=== PATIENT | female | born 1950 | race Caucasian/White ===

== ENCOUNTER 2020-01-25 17:30 | Emergency (ER) | payer MEDICARE ==
--- NOTE | 2020-01-25 22:59 | ER Document Report ---
ED General - General Mode of Arrival: Ambulatory Information source: Patient - HPI Onset: Other Onset/Duration: Gradual - Weeks Quality of pain: Other - Tight short of breath backache cough and Severity: Moderate Pain Level: 3 Associated symptoms: Body/muscle aches, Productive cough, Leg swelling, Shortness of breath Exacerbated by: Supine, Movement, Walking Relieved by: Denies Similar symptoms previously: Yes Recently seen / treated by doctor: No <SISI BOYCE - Last Filed: 01/25/20 22:54> <MARKUS ARRINGTON - Last Filed: 01/26/20 10:54> - General Chief Complaint: Shortness Of Breath Stated Complaint: LEG SWELLING/PAIN Time Seen by Provider: 01/25/20 22:27 Notes: 69-year-old female presented to ED for very large swollen bilateral lower extremities. She states she does have a history of high blood pressure high cholesterol but has been taken off of both of those medications while still in [place]. She states she has had very swollen painful legs for at least 2 weeks and is just moved up here from [place] with these painful swollen legs. She does have a cough that sometimes is dry and sometimes is very moist. She is alert oriented lungs are moist at this time. She is short of breath unable to lay flat. (SISI BOYCE) - Related Data Allergies/Adverse Reactions: No Known Allergies Allergy (Unverified 01/26/20 01:47) Past Medical History - General Information source: Patient - Social History Smoking Status: Never Smoker Frequency of alcohol use: None Drug Abuse: None Lives with: Family Family History: Reviewed & Not Pertinent Patient has suicidal ideation: No Patient has homicidal ideation: No - Past Medical History Cardiac Medical History: Reports: Hx Hypercholesterolemia, Hx Hypertension Pulmonary Medical History: Reports: None EENT Medical History: Reports: None Neurological Medical History: Reports: None Endocrine Medical History: Reports: None Renal/ Medical History: Reports: None Malignancy Medical History: Reports: None GI Medical History: Reports: None Musculoskeletal Medical History: Reports None Skin Medical History: Reports None Psychiatric Medical History: Reports: None Traumatic Medical History: Reports: None Infectious Medical History: Reports: None Surgical Hx: Negative Past Surgical History: Reports: None <SISI BOYCE - Last Filed: 01/25/20 22:54> Review of Systems - Review of Systems Cardiovascular: Orthopnea Respiratory: Cough, Short of breath Gastrointestinal: No symptoms reported Genitourinary: No symptoms reported Female Genitourinary: No symptoms reported Musculoskeletal: Back pain, Muscle pain, Muscle stiffness, Leg swelling, Ankle swelling Skin: No symptoms reported Hematologic/Lymphatic: No symptoms reported Neurological/Psychological: Weakness -: Yes All other systems reviewed and negative <SISI BOYCE - Last Filed: 01/25/20 22:54> Physical Exam - Vital signs Interpretation: Normal - General General appearance: Appears well, Alert - HEENT Head: Normocephalic, Atraumatic Eyes: Normal Pupils: PERRL Ears: Normal External canal: Normal, Swollen Sinus: Normal Nasal: Purulent discharge Mouth/Lips: Normal Mucous membranes: Normal Pharynx: Post nasal drainage Neck: Normal - Respiratory Respiratory status: No respiratory distress Chest status: Nontender Breath sounds: Nonproductive cough, Productive cough, Rales Chest palpation: Normal - Cardiovascular Rhythm: Regular Heart sounds: Normal auscultation Murmur: No - Abdominal Inspection: Normal Distension: No distension Bowel sounds: Normal Tenderness: Nontender Organomegaly: No organomegaly - Back Back: Normal, Nontender - Extremities General upper extremity: Normal inspection, Nontender, Normal color, Normal ROM, Normal temperature General lower extremity: No: Arthur's sign Calf: Unable to bear weight, Other - edema Ankle: Tender, Edema, Limited ROM, Unable to bear weight - Neurological Neuro grossly intact: Yes Cognition: Normal Orientation: AAOx4 [place] Coma Scale Eye Opening: Spontaneous Brett Coma Scale Verbal: Oriented [place] Coma Scale Motor: Obeys Commands [place] Coma Scale Total: 15 Speech: Normal Motor strength normal: LUE, RUE, LLE, RLE Sensory: Normal - Psychological Associated symptoms: Normal affect, Normal mood - Skin Skin Temperature: Warm Skin Moisture: Dry Skin Color: Normal <SISI BOYCE - Last Filed: 01/25/20 22:54> - Vital signs Vitals: Temp Pulse Resp BP Pulse Ox 98.2 F 65 18 164/81 H 98 01/25/20 19:33 01/25/20 19:33 01/25/20 19:33 01/25/20 19:33 01/25/20 19:33 Course - Laboratory Result Diagrams: 01/26/20 00:05 01/25/20 23:19 <MARKUS ARRINGTON - Last Filed: 01/26/20 10:54> - Re-evaluation Re-evalutation: 01/26/20 08:00 report received on patient 01/26/20 09:00 I evaluated the patient. She has bilateral lower extremity edema. She recently traveled from [place] 3 weeks ago to live with family here but after 1 week she and her daughter were kicked out. They have been living in her car. I placed a consult for social work for the patient. 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 Does not on a diuretic. Doppler has been paged and are coming in to evaluate the patient although I suspect she likely has dependent edema and will need a course of diuretics. She has no complaints of chest pain shortness of breath 01/26/20 10:54 doppler study negative. patient has spoken to social work prior to discharge (MARKUS ARRINGTON) - Vital Signs Vital signs: Temp Pulse Resp BP Pulse Ox 97.5 F 72 16 141/72 H 97 01/26/20 02:04 01/26/20 02:04 01/26/20 02:04 01/26/20 02:04 01/26/20 02:04 - Laboratory Laboratory results interpreted by me: 01/25/20 01/25/20 01/25/20 23:19 23:19 23:51 RDW Sodium 135.9 L NT-Pro-B Natriuret Pep 143 H Urine Nitrite POSITIVE H Ur Leukocyte Esterase LARGE H Urine Ascorbic Acid 40 H 01/26/20 00:05 RDW 14.3 H Sodium NT-Pro-B Natriuret Pep Urine Nitrite Ur Leukocyte Esterase Urine Ascorbic Acid Discharge <SISI BOYCE - Last Filed: 01/25/20 22:54> <MARKUS ARRINGTON - Last Filed: 01/26/20 10:54> - Discharge Clinical Impression: Dependent edema UTI (urinary tract infection) Qualifiers: Urinary tract infection type: acute cystitis Hematuria presence: without hematuria Qualified Code(s): N30.00 - Acute cystitis without hematuria Condition: Stable Disposition: HOME, SELF-CARE Additional Instructions: Your Doppler studies were negative for blood clots, you likely have dependent edema try and keep the legs elevated above the heart level when sleeping. Use compression hose which you may brass pickler at the pharmacy to help compress the legs and remove some of the fluid. Take the diuretic as prescribed to help with the fluid on the legs. Follow-up with a primary care provider for reevaluation Prescriptions: Sulfamethoxazole/Trimethoprim [Bactrim Ds Tablet] 1 each PO BID #14 tablet Hydrochlorothiazide [Hydrodiuril 25 mg Tablet] 25 mg PO QAM #30 tablet Referrals: SUSAN PARKER MD [ACTIVE STAFF] - Follow up as needed
[2020-01-25 23:39] LABS: INTERNATIONAL RATION (INR) 1.07; PROTHROMBIN TIME 13.9 SEC (11.4-15.4)
[2020-01-25 23:40] LABS: PARTIAL THROMBOPLASTIN TIME 30.1 SEC (23.5-35.8)
--- NOTE | 2020-01-25 23:47 | RADIOLOGY REPORT (SQ) ---
XR CHEST 2 VIEWS CLINICAL STATEMENT: Short of breath pedal edema COMPARISON: None FINDINGS: Heart is moderately enlarged. There is no focal lung consolidation or pleural effusion. No evidence of pulmonary edema or pneumothorax. IMPRESSION: No acute cardiopulmonary disease.
[2020-01-25 23:53] LABS: A TYPE INFLUENZA AG NEGATIVE (NEGATIVE); B INFLUENZA AG NEGATIVE (NEGATIVE)
[2020-01-25 23:54] LABS: ALBUMIN 3.9 g/dL (3.5-5.0); ALKALINE PHOSPHATASE 77 U/L (38-126); ANION GAP 6 (5-19); ASPARTATE AMINO TRANSFERASE 22 U/L (14-36); BILIRUBIN,TOTAL 0.6 mg/dL (0.2-1.3); BLOOD UREA NITROGEN 14 mg/dL (7-20); CALCIUM 9.3 mg/dL (8.4-10.2); CARBON DIOXIDE 27 mmol/L (22-30); CHLORIDE 103 mmol/L (98-107); GLUCOSE 99 mg/dL (75-110); POTASSIUM 4.1 mmol/L (3.6-5.0); TOTAL PROTEIN 7.3 g/dL (6.3-8.2)
[2020-01-26 00:06] LABS: NT PRO BNP 143 pg/mL (<125)
[2020-01-26 00:08] LABS: TROPONIN I < 0.012 ng/mL
[2020-01-26 00:11] LABS: APPEARANCE,URINE SLIGHTLY-CLOUDY; BILIRUBIN,URINE NEGATIVE (NEGATIVE); COLOR,URINE YELLOW; GLUCOSE, URINE NEGATIVE (NEGATIVE); KETONES,URINE NEGATIVE (NEGATIVE); LEUKOCYTE ESTERASE,URINE LARGE (NEGATIVE); NITRITE,URINE POSITIVE (NEGATIVE); PROTEIN,URINE NEGATIVE (NEGATIVE); URINE SPECIFIC GRAVITY 1.011; UROBILINOGEN,URINE NEGATIVE mg/dL (<2.0)
[2020-01-26 00:21] LABS: ABSOLUTE EOSINOPHILS # (AUTO) 0.1 10^3/uL (0.0-0.6); ABSOLUTE LYMPHOCYTES (AUTO) 1.4 10^3/uL (0.5-4.7); ABSOLUTE MONOCYTES (AUTO) 0.5 10^3/uL (0.1-1.4); ABSOLUTE NEUT (AUTO) 3.7 10^3/uL (1.7-8.2); BASOPHILS % (AUTO) 0.8 % (0-2); EOSINOPHILS % (AUTO) 2.1 % (0-6); HEMATOCRIT 37.2 % (36.0-47.0); HEMOGLOBIN 12.5 g/dL (12.0-15.5); LYMPHOCYTES % (AUTO) 23.8 % (13-45); MEAN CORPUSCULAR HEMOGLOBIN 30.2 pg (27.0-33.4); MEAN CORPUSCULAR HGB CONC 33.7 g/dL (32.0-36.0); MEAN CORPUSCULAR VOLUME 90 fl (80-97); MONOCYTES % (AUTO) 8.3 % (3-13); PLATELET COUNT 198 10^3/uL (150-450); RED BLOOD COUNT 4.16 10^6/uL (3.72-5.28); RED CELL DISTRIBUTION WIDTH 14.3 % (11.5-14.0); TOTAL CELLS COUNTED % (AUTO) 100 %; WHITE BLOOD COUNT 5.7 10^3/uL (4.0-10.5)
[2020-01-26] MEDS ORDERED: CEFTRIAXONE 1 GM/D5W RTU 1 GM/50 ML RTUPB IV ONE (00:35)
--- NOTE | 2020-01-26 10:42 | RADIOLOGY REPORT (SQ) ---
EXAM DESCRIPTION: VENOUS BILATERAL LOWER IMAGES COMPLETED DATE/TIME: 01/26/2020 10:26 am REASON FOR STUDY: bilateral pedal and leg edema x2 weeks. Shortness of breath. History of DVT. The patient has IVC filter. COMPARISON: None. TECHNIQUE: Static duran scale and color images acquired of both lower extremity venous systems. Selec ольга spectral images acquired with additional compression and augmentation maneuvers. Images stored on PACS. LIMITATIONS: None. FINDINGS: RIGHT LEG COMMON FEMORAL AND FEMORAL: Normal phasicity, compression and augmentation. No visualized echogenic m aterial on duran scale. No defects on color images. POPLITEAL: Normal compression and augmentation. No visualized echogenic material on duran scale. No de fects on color images. CALF VESSELS: The peroneal vein was not visualized. Normal compression of the posterior tibial vein with no visualized echogenic material grayscale or defects on color images. GSV AND SSV: Normal compression. No visualized echogenic material on duran scale. No defects on color images. ANY DEEP VENOUS INSUFFICIENCY: Not evaluated. ANY EVIDENCE OF POPLITEAL CYST: No. LEFT LEG COMMON FEMORAL AND FEMORAL: Normal phasicity, compression and augmentation. No visualized echogenic m aterial on duran scale. No defects on color images. POPLITEAL: Normal compression and augmentation. No visualized echogenic material on duran scale. No de fects on color images. CALF VESSELS: The peroneal vein was not visualized. Normal compression of the posterior tibial vein with no visualized echogenic material grayscale or defects on color images. GSV AND SSV: Normal compression. No visualized echogenic material on duran scale. No defects on color images. ANY DEEP VENOUS INSUFFICIENCY: Not evaluated. ANY EVIDENCE POPLITEAL CYST: No. IMPRESSION: NO EVIDENCE FOR DVT OR SVT IN EITHER LEG. TECHNICAL DOCUMENTATION: JOB ID: [id number] [employer]- All Rights Reserved Reading location - IP/workstation name: [email or web address]
[2020-01-26 11:27] VITALS: BP 138/78
--- NOTE | 2020-01-27 18:37 | EKG REPORT ---
SEVERITY:- ABNORMAL ECG - SINUS RHYTHM FIRST DEGREE AV BLOCK : Confirmed by: Simona Crooks 27-Jan-2020 18:37:15
== END 2020-01-26 11:04 | disposition home or self-care (01) ==
LOC: ER 17:30
DX: N30.00 Acute cystitis without hematuria (principal); R60.9 Edema, unspecified; M79.10 Myalgia, unspecified site; E78.00 Pure hypercholesterolemia, unspecified; I10 Essential (primary) hypertension; Z20.828 Contact with and (suspected) exposure to other viral communicable diseases
CPT/HCPCS: 93005; 99284; 96365; 36415; 87070; 87086; 87880; 83690; 85025; 85610; 85730; 87088; 80053; 81001; 84484; 87186; 87804; 83880; 93970; 71046; 93010; U0003; J0696; C9803; 87635